=== PATIENT | male | born 1995 | race African-American/Black ===

== ENCOUNTER 2022-02-01 11:15 | Emergency (ER) | payer MEDICAID ==
[~2022-02-01] VITALS: Ht 182.9 cm; Wt 69.0 kg
[2022-02-01 11:17] VITALS: BP 109/72
== END 2022-02-01 13:08 | disposition left against medical advice (07) ==
LOC: ER 11:15
DX: Z53.21 Procedure and treatment not carried out due to patient leaving prior to being seen by health care provider (principal)